=== PATIENT | male | born 1980 | race Caucasian/White ===

== ENCOUNTER 2016-10-20 15:03 | Emergency (ER) | payer OTHER ==
[~2016-10-20] VITALS: Ht 172.7 cm; Wt 64.3 kg
[~2016-10-20 15:03] MED LIST: CIPRO500 MG PO; FLEXERIL10 MG PO; FLOMAX0.4 MG PO; NAPROSYN500 MG PO; NAPROXEN500 MG PO; PERCOCET 5/31 TABLET PO; PREDNISONE20 MG PO; ZOFRAN ODT4 MG PO
[2016-10-20] MEDS ORDERED: NAPROSYN500 MG PO (16:58)
[2016-10-20] MEDS ORDERED: FLEXERIL10 MG PO (16:58)
[2016-10-20 17:15] VITALS: BP 122/76
== END 2016-10-20 17:17 | disposition home or self-care (01) ==
LOC: EME 15:03
DX: M54.5 Low back pain (principal); F17.210 Nicotine dependence, cigarettes, uncomplicated
CPT/HCPCS: 72100; 99281; 99284; J1885